=== PATIENT | female | born 1975 | race Caucasian/White ===

== ENCOUNTER → 2022-03-17 | Day surgery (SDC) | payer OTHER ==
[~2022-03-17] MED LIST: BUPIVACAINE 0.25% 30ML SDV ONE; DEXAMETHASONE SOD PHOS INJ 4 MG/ML SDV ONE; FENTANYL CITRATE/PF 100MCG/2 ML INJ ONE; HYDROCODONE/APAP 7.5MG-325MG 1 EA TAB ONE; KETOROLAC PO; KETOROLAC TROMETHAMINE 30 MG/ML VIAL ONE; LIDOCAINE 1% W/EPINEPHRINE 20 ML VIAL ONE; LIDOCAINE HCL 2% LOCAL INJ 5 ML SDV VIAL INJ ONE; MIDAZOLAM HCL 2 MG/2 ML VIAL ONE; ONDANSETRON HCL INJ 2MG/ML 2ML 2 MG/ML VIAL ONE; POVIDONE IODINE 0.05% 0.05 % ML PO ONE; PROPOFOL IV EMULSION 10 MG/ML 20 ML VIAL ONE; ROPIVACAINE 0.5% 5 MG/ML 30 ML SDV INJ ONE; SEVOFLURANE INHAL SOLN 250 ML PEN BTL ONE; Vancomycin IV 1 GM VIAL ONE
[2022-03-17 13:20] VITALS: BP 126/84
== END | disposition home or self-care (01) ==
LOC: OR 08:44
PROVIDERS: ATTEND Orthopaedic Surgery
DX: S83.512A Sprain of anterior cruciate ligament of left knee, initial encounter (principal); S83.212A Bucket-handle tear of medial meniscus, current injury, left knee, initial encounter; S83.272A Complex tear of lateral meniscus, current injury, left knee, initial encounter; M22.42 Chondromalacia patellae, left knee; M67.52 Plica syndrome, left knee; X50.1XXA Overexertion from prolonged static or awkward postures, initial encounter; Z01.812 Encounter for preprocedural laboratory examination; Z20.822 Contact with and (suspected) exposure to COVID-19
CPT/HCPCS: 0223U; 29883; 29888; 36415; 81025; C1713 ×6; C1769 ×2; J0690; J1100; J1885; J2001; J2250; J2405; J2704; J2795; J3010; J3370